=== PATIENT | male | born 1985 | race Two or more races ===

== ENCOUNTER 2016-06-12 11:36 | Emergency (ER) | payer SELFPAY ==
[~2016-06-12] VITALS: Ht 188 cm; Wt 86.2 kg
[2016-06-12 11:46] VITALS: BP 140/91
[2016-06-12] MEDS ORDERED: ALBUTEROL FS 2.5 MG/3 ML VIAL.NEB ONE (11:55)
[2016-06-12] MEDS ORDERED: IPRATROPIUM NEB FS 0.5 MG/2.5 ML AMPUL.NEB ONE (11:56)
[2016-06-12] MEDS: ALBUTEROL FS 2.5 MG/3 ML VIAL.NEB NEB ONE (11:59)
[2016-06-12] MEDS: IPRATROPIUM NEB FS 0.5 MG/2.5 ML AMPUL.NEB NEB ONE (11:59)
[2016-06-12] MEDS ORDERED: predniSONE 20 MG TABLET ONE (12:04)
[2016-06-12] MEDS: predniSONE 20 MG TABLET PO ONE (12:09)
== END 2016-06-12 13:52 | disposition home or self-care (01) ==
LOC: ER 11:39
DX: J20.8 Acute bronchitis due to other specified organisms (principal); Z88.9 Allergy status to unspecified drugs, medicaments and biological substances
CPT/HCPCS: 71010; 94644; 99285; A4606; J7512; Z7610

== ENCOUNTER 2016-07-06 15:34 | Emergency (ER) | payer MEDICAID ==
[~2016-07-06] VITALS: Ht 188 cm; Wt 86.2 kg
[2016-07-06 15:39] VITALS: BP 125/63
== END 2016-07-06 15:58 | disposition home or self-care (01) ==
LOC: ER 15:37
DX: J20.9 Acute bronchitis, unspecified (principal); Z91.048 Other nonmedicinal substance allergy status
CPT/HCPCS: 99283; A4606; Z7610